=== PATIENT | female | born 1980 | race Caucasian/White ===

== ENCOUNTER 2016-09-10 10:44 | Emergency (ER) | payer OTHER, MEDICAID ==
[~2016-09-10] VITALS: Ht 165.1 cm; Wt 90.7 kg
[~2016-09-10 10:44] MED LIST: AZI250T PO; CETI1TAB36 PO; IBUP600T27 PO
[2016-09-10 11:02] VITALS: BP 104/86
[2016-09-10] MEDS ORDERED: methylPREDNISolone SOD SUCC 125 MG/2 ML VL IM ONE (12:15)
[2016-09-10] MEDS ORDERED: EPINEPHrine HCL 1 MG/1 ML AMP SC ONE (12:15)
== END 2016-09-10 12:54 | disposition home or self-care (01) ==
LOC: ER 10:44
DX: T78.40XA Allergy, unspecified, initial encounter (principal); Z88.6 Allergy status to analgesic agent
CPT/HCPCS: 96372; 99284; J0171; J2930